=== PATIENT | female | born 1990 | race African-American/Black ===

== ENCOUNTER 2019-11-09 04:57 | Inpatient (IN) ==
[2019-11-09 05:37] LABS: Apearance,Urine CLEAR (Clear); Bilirubin,Urine Negative (Negative); Blood, Urine Negative (Negative); Glucose,Urine (UA) Negative (Negative); Ketones,Urine Negative (Negative); Nitrite,Urine Negative (Negative); Protein,Urine Negative; RBC,Urine 2 /HPF (0-4); Squamous Epithelial Cell,Urine Occasional /HPF (0-10); Urine Color Straw (Yellow); Urine Specific Gravity 1.004 (1.001-1.035); Urine Urobilinogen < 2.0 EU/DL (0.2-1.0); WBC,Urine 2 /HPF (0-6)
[2019-11-09] MEDS ORDERED: BUTORPHANOL 2 MG/ML VIAL IV PRN (06:12)
[2019-11-09] MEDS ORDERED: LACTATED RINGERS 1,000 ML IV ONE ×2 (06:12→17:46)
[2019-11-09] MEDS: ONDANSETRON 4 MG/2 ML VIAL IV PRN ×2 (06:39→16:12)
[2019-11-09] MEDS: LACTATED RINGERS 1,000 ML IV SCH ×3 (09:04→20:34)
[2019-11-09] MEDS: MEPERIDINE 50 MG/1 ML VIAL IV PRN ×2 (11:44→16:17)
[2019-11-09] MEDS ORDERED: ePHEDrine 50 MG/ML VIAL IV PRN (17:46)
[2019-11-09] MEDS ORDERED: CITRIC ACID/SODIUM CITRATE 30 ML UDCUP PO ONE (17:46)
[2019-11-09] MEDS ORDERED: FAMOTIDINE 20 MG/2 ML VIAL IV ONE (17:46)
[2019-11-09] MEDS ORDERED: AMPICILLIN INJ 2,000 MG in SODIUM CHLORIDE 0.9% 100 ML IV ONE (17:46)
[2019-11-09] MEDS ORDERED: diphenhydrAMINE 50 MG/1 ML VIAL IV PRN ×2 (17:47)
[2019-11-09] MEDS ORDERED: hydrOXYzine HCL 25 MG/1 ML VIAL IM PRN (17:47)
[2019-11-09] MEDS ORDERED: PROMETHAZINE 25 MG/1 ML VIAL IM ONE (17:47)
[2019-11-09] MEDS ORDERED: NALOXONE 0.4 MG/ML VIAL IV PRN (17:47)
[2019-11-09] MEDS ORDERED: fentaNYL 2 MCG/ROPIV 0.2% EPID 100 ML EPIDURAL SCH (18:00)
[2019-11-09] MEDS ORDERED: OXYTOCIN 20 UNIT in SODIUM CHLORIDE 0.9% 1,000 ML IV SCH (18:00)
[2019-11-09 18:06] LABS: Basophils % 0.1 % (0.0-0.8); Hematocrit 32.5 VOL% (35.7-47.0); Hemoglobin 9.8 GM/DL (12.0-16.0); Immature Granulocytes Absolute 0.11 #; Lymphocytes # 1.3 10*3/uL (1.4-4.0); Lymphocytes % 11.6 % (21.3-54.2); Mean Corpuscular HGB Conc 30.2 GM/DL (32-36); Monocytes % 9.9 % (1.7-12.7); Neutrophils % 77.4 % (38.7-73.9); Platelet Count 213 T/CUMM (130-400); Red Blood Count 3.87 MC/CUMM (3.8-5.5); Red Cell Distribution Width 14.4 % (9.3-17.3); White Blood Count 11.2 T/CUMM (4-12)
[2019-11-09 18:29] LABS: Albumin 2.7 G/DL (3.4-5.0); Bilirubin,Total 0.4 MG/DL (0.2-1.0); Calcium 9.1 MG/DL (8.5-10.1); Osmolality,Calculated 261.4 MOS/KG (273-304); Total Protein 6.6 G/DL (6.4-8.3)
[2019-11-09] MEDS ORDERED: LIDOCAINE 1% 50 ML VIAL ONE (19:13)
[2019-11-09 19:57] LABS: Apearance,Urine CLEAR (Clear); Bilirubin,Urine Negative (Negative); Blood, Urine Moderate mg/dL (Negative); Glucose,Urine (UA) Negative (Negative); Ketones,Urine 20 mg/dL (Negative); Nitrite,Urine Negative (Negative); Protein,Urine Negative; RBC,Urine 28 /HPF (0-4); Squamous Epithelial Cell,Urine Occasional /HPF (0-10); Urine Color Yellow (Yellow); Urine Urobilinogen < 2.0 EU/DL (0.2-1.0); WBC,Urine 2 /HPF (0-6)
[2019-11-09] MEDS ORDERED: SODIUM CHLORIDE 0.9% 100 ML IV ONE (20:23)
[2019-11-09] MEDS ORDERED: AMPICILLIN INJ 1,000 MG in SODIUM CHLORIDE 0.9% 100 ML IV SCH (22:00)
[2019-11-09] MEDS ORDERED: miSOPROStoL 200 MCG TABLET ONE (22:57)
[2019-11-09] MEDS ORDERED: OXYTOCIN/LR 20 UNIT/1,000 ML BAG IV ONE (22:57)
[2019-11-09] MEDS ORDERED: METHYLERGONOVINE 0.2 MG/1 ML AMP ONE (22:57)
[2019-11-09] MEDS ORDERED: TRANEXAMIC ACID 1,000 MG/10 ML VIAL ONE (22:57)
[2019-11-09] MEDS ORDERED: CARBOPROST TROMETHAMINE 250 MCG/ML AMP IM ONE (22:58)
[2019-11-09 23:48] LABS: Cord Arterial Blood HCO3 18.7 MMOL/L
[2019-11-09 23:50] LABS: Cord Venous Blood HCO3 20.8 MMOL/L; Cord Venous Blood PCO2 49.9 MMHG; Cord Venous Blood PO2 29.1
[2019-11-10] MEDS ORDERED: IBUPROFEN 800 MG TABLET PO PRN (02:22)
[2019-11-10 06:09] LABS: Basophils % 0.2 % (0.0-0.8); Hematocrit 30.2 VOL% (35.7-47.0); Hemoglobin 9.6 GM/DL (12.0-16.0); Immature Granulocytes % 0.6 %; Immature Granulocytes Absolute 0.08 #; Lymphocytes # 1.1 10*3/uL (1.4-4.0); Lymphocytes % 9.1 % (21.3-54.2); Mean Corpuscular HGB Conc 31.8 GM/DL (32-36); Mean Corpuscular Volume 80.1 FL (87-102); Mean Platelet Volume 10.1 FL (9.6-12.0); Monocytes % 10.9 % (1.7-12.7); Neutrophils % 79.2 % (38.7-73.9); Platelet Count 198 T/CUMM (130-400); Red Blood Count 3.77 MC/CUMM (3.8-5.5); Red Cell Distribution Width 14.2 % (9.3-17.3); White Blood Count 12.5 T/CUMM (4-12)
[2019-11-10] MEDS: FERROUS SULFATE 325 MG TABLET PO SCH (08:00)
[2019-11-10] MEDS: DOCUSATE SODIUM 100 MG CAPSULE PO SCH ×2 (08:00→21:45)
[2019-11-11 07:23] VITALS: BP 106/76
[2019-11-11] MEDS: FERROUS SULFATE 325 MG TABLET PO SCH (09:07)
[2019-11-11] MEDS: DOCUSATE SODIUM 100 MG CAPSULE PO SCH (09:07)
[2019-11-11] MEDS ORDERED: DIPH/TET/ACEL PERT BOOSTER VACCINE 0.5 ML VIAL IM ONE (10:31)
== END 2019-11-11 11:15 | disposition home or self-care (01) | DRG 560 ==
LOC: N.LDOUT 04:57 → N.LD 05:01 → N.OB 11-10 02:21
PROVIDERS: ADMIT Obstetrics & Gynecology; ATTEND Obstetrics & Gynecology